=== PATIENT | female | born 1960 | race Caucasian/White ===

== ENCOUNTER 2023-06-28 04:33 | Emergency (ER) | payer SELFPAY ==
[2023-06-28 04:36] VITALS: BP 163/96; PULSE 93; RESP 16; TEMP 36.1; O2SAT 99
--- NOTE | 2023-06-28 05:06 | ED_ITS ---
HPI - General Adult General Chief complaint: Unspecified Complaint, Adult Stated complaint: High Blood Pressure Time Seen by Provider: 06/28/23 05:06 History of Present Illness HPI narrative: pt reports a feeling of her heart coming out of her chest. started around 2am. pt took two aspirin at this point. pt took blood pressure at home, was 170's . pt currently does not have chest pain. no nausea, no dizziness. pt reports burping and metal taste in mouth. 62-year-old woman presenting to the emergency department with concern of heart pounding and worried might be having a heart attack I believe. Had been up making a cake. Drink of full glass of water and then went bad and then felt like she had some heartburn. Around 2:00 a.m. subsequently then her heart started beating really hard. She took her blood pressure and it was elevated in the 170s over the as high as 100 diastolic. Repeated measurements did not go lower than 80 diastolic. She asks me if this could have been anxiety. Does not have known cardiovascular disease. Her beauty consultant has suggested that 1 side of her heart might be compromised? She did take 2 aspirin. She was not feeling lightheaded. Much later in recollection she remembers that she has felt like this in the past thought to be anxiety. Related Data Home Medications Medication Instructions Recorded Confirmed aspirin 325 mg tablet 325 mg PO Q4H 05/14/22 05/14/22 Allergies Allergy/AdvReac Type Severity Reaction Status Date / Time tetanus and diphtheria Allergy Intermediate Nausea Verified 05/14/22 17:30 toxoids Review of Systems Status of ROS: Reports: 6 or more systems reviewed and unremarkable except as noted in History and below [facility] Social History Smoking Status: Never smoker Non-prescribed substance use: denies use service: No Exam 2 Narrative: Exam Narrative: Very pleasant. Perhaps mildly anxious. Cranial nerves 2-12 intact. Speaking fluidly. Breathing easily. Skin is warm and dry. Extremities are without edema. She is well-perfused. Lungs are clear. Heart with mildly elevated rate in a regular rhythm. No reproduction of pain to palpation of the anterior chest wall. Oropharynx is unremarkable. Abdomen is soft. Maybe little uncomfortable in the epigastrium. Const: Vital Signs, click to edit/add: Vital Signs - 24 hr 10/29/23 04:36 06/28/23 06:35 Temperature 97.0 F L Pulse Rate [Left P ulse Oximeter] 93 82 Respiratory Rate 16 16 Blood Pressure [Ri ght Upper Arm] 163/96 H 137/80 Pulse Oximetry 99 97 Oxygen Delivery Me thod Room Air Room Air Documenting provider has reviewed patient's vital signs: yes Course Vital Signs Vital signs: Initial Vital Signs Temperature 97.0 F L 06/28/23 04:36 Temperature Source Temporal Artery Scan 06/28/23 04:36 Pulse Rate 93 06/28/23 04:36 Pulse Rhythm Regular 06/28/23 04:36 Respiratory Rate 16 06/28/23 04:36 Blood Pressure 163/96 H 06/28/23 04:36 Blood Pressure Mean 118 H 06/28/23 04:36 Blood Pressure Position Sitting 06/28/23 04:36 Pulse Oximetry 99 06/28/23 04:36 Oxygen Delivery Method Room Air 06/28/23 04:36 Vital Signs Temperature 97.0 F L 06/28/23 04:36 Pulse Rate 93 06/28/23 04:36 Respiratory Rate 16 06/28/23 04:36 Blood Pressure 163/96 H 06/28/23 04:36 Pulse Oximetry 99 06/28/23 04:36 Oxygen Delivery Method Room Air 06/28/23 04:36 Temperature 97.0 F L 06/28/23 04:36 Pulse Rate 82 06/28/23 06:35 Respiratory Rate 16 06/28/23 06:35 Blood Pressure 137/80 06/28/23 06:35 Pulse Oximetry 97 06/28/23 06:35 Oxygen Delivery Method Room Air 06/28/23 06:35 Medical Decision Making MDM Narrative Medical decision making narrative: This does seem to be heartburn related episode that contributed to some degree of anxiety. Late alcoholic drink? Perhaps there was some esophageal spasm but can not really prove that I suppose. Certainly could have been arrhythmia or dysrhythmia. Possible ischemic cardiovascular event. Does not seem to have residual symptoms suggesting PE or pneumothorax or other vascular phenomenon or anemia. EKG was already reviewed as below. Ultimately she would like to proceed with further evaluation. I think this is very reasonable, prudent. Standard labs ordered. Monitored on cardiac cath technician without further event in the ER. Labs are reassuring. She would prefer not to repeat troponin. See patient discharge plan Medical Records Medical records reviewed: Yes I reviewed the patient's medical records Lab Data Lab results reviewed: Yes I reviewed the patient's lab results Labs: Lab Results 06/28/23 Range/Units 05:35 Hgb 12.9 (12.0-16.0) gm/dL Sodium 141 (135-149) mmol/L Potassium 3.6 (3.6-5.1) mmol/L Chloride 106 (96-114) mmol/L Carbon Dioxide 28 (20-32) mmol/L Anion Gap 7 (7-15) mEq/L BUN 11 (7-30) mg/dL Creatinine 0.5 (0.5-1.5) mg/dL Estimated GFR 107 ml/min Glucose 98 (60-115) mg/dL Calcium 9.3 (8.4-10.6) mg/dL Total Bilirubin 0.4 (0.1-1.5) mg/dL Direct Bilirubin 0.0 (0.0-0.5) mg/dL AST 31 (12-35) U/L ALT 24 (4-35) U/L Alkaline Phosphatase 89 (40-150) U/L Troponin I < 0.01 L (0.01-0.04) ng/mL Total Protein 6.9 (6.0-8.3) g/dL Albumin 4.3 (3.3-5.0) g/dL POC Troponin I 0.01 (0.01-0.04) ng/ml ECG Data Attestation: I personally reviewed and interpreted this ECG as follows: (Normal sinus rhythm rate of 79. Mildly prominent P-wave?) Discharge Plan Discharge Clinical Impression: Heartburn, Anxiety attack Patient Disposition: Home w/ Parent or Adult Condition: Improved Additional Instructions: Think you are likely correct that attack of anxiety contributed to the majority of your symptoms. That is hard to prove though. You might consider following up for an echocardiogram through your primary care provider given what your beauty consultant has told you. Of course return for persistent chest pain, and persistent any increasing shortness of breath, lightheadedness, diaphoresis, associated nausea. No restrictions to activity at this time. Prescriptions: No Action aspirin 325 mg tablet 325 mg PO Q4H Rx Instructions: while awake Follow Up/Referrals: Provider,Not a Local [Primary Care Provider] - Stand Alone [facility]
[2023-06-28 05:39] LABS: Hemoglobin* 12.9 gm/dL (12.0-16.0)
[2023-06-28 05:46] LABS: Troponin, Point-of-Care* 0.01 ng/ml (0.01-0.04)
[2023-06-28 05:52] LABS: Albumin* 4.3 g/dL (3.3-5.0)
[2023-06-28 05:53] LABS: Chloride* 106 mmol/L (96-114); Potassium* 3.6 mmol/L (3.6-5.1); Sodium* 141 mmol/L (135-149)
[2023-06-28 05:55] LABS: Anion Gap 7 mEq/L (7-15); Bilirubin Total* 0.4 mg/dL (0.1-1.5); Carbon Dioxide* 28 mmol/L (20-32); Creatinine* 0.5 mg/dL (0.5-1.5); Estimated Glomerular Filt Rate 107 ml/min; Total Protein* 6.9 g/dL (6.0-8.3)
[2023-06-28 05:56] LABS: Alanine Aminotransferase* 24 U/L (4-35); Alkaline Phosphatase* 89 U/L (40-150); Aspartate Amino Transferase* 31 U/L (12-35); Blood Urea Nitrogen* 11 mg/dL (7-30); Calcium* 9.3 mg/dL (8.4-10.6); Glucose* 98 mg/dL (60-115)
[2023-06-28 06:10] LABS: Troponin I* < 0.01 ng/mL (0.01-0.04)
[2023-06-28 06:35] VITALS: BP 137/80; PULSE 82; RESP 16; O2SAT 97
== END 2023-06-28 06:54 | disposition home or self-care (01) ==
PROVIDERS: Emergency Provider Family Medicine
DX: R12 Heartburn (principal); F41.9 Anxiety disorder, unspecified
CPT/HCPCS: 36415; 80048; 80076; 84484; 85018; 93005; 99284